=== PATIENT | male | born 2000 | race Caucasian/White ===

== ENCOUNTER → 2024-11-07 | Outpatient (CLI) | payer MEDICAID, SELFPAY ==
--- NOTE | 2024-11-07 11:46 | XR_ITS ---
Examination: Ultrasound liver elastography Exam date and time: November 07, 2024 1108 hours INDICATIONS: Diagnosis cirrhosis 3 years ago TECHNIQUE AND FINDINGS: Liver 15.0 cm fatty infiltration no focal liver lesions Normal hepatopedal portal venous oh Patent hepatic veins Tissues stiffness average 1.25 m/s normal to mild liver fibrosis IMPRESSION: Normal to mild liver fibrosis
== END | disposition home or self-care (01) ==
PROVIDERS: PCP Registered Nurse Pediatrics; Referring Provider Registered Nurse Pediatrics; Visit Provider Registered Nurse Pediatrics
DX: K74.00 Hepatic fibrosis, unspecified (principal); K74.60 Unspecified cirrhosis of liver
CPT/HCPCS: 76981